=== PATIENT | male | born 2005 | race Caucasian/White ===

== ENCOUNTER 2024-04-06 15:47 | Emergency (ER) | payer SELFPAY ==
--- NOTE | ~2024-04-06 | XR_ITS ---
EXAM: XR ankle RT min 3V, XR foot RT min 3V DATE: 04/06/2024 17:09 HISTORY: sports injury, swelling, pain . COMPARISON: None available. FINDINGS: Normal mineralization. No fracture or dislocation. No lytic or blastic lesion. Mild degene rative change at the first MTP joint. No erosion or periosteal change. Lateral soft tissue swelling. IMPRESSION: No acute osseous finding in the right ankle or foot. Reviewed, dictated and finalized at location K. PEELING MACHINE OPERATOR HELPER IMPRESSION: No acute osseous finding in the right ankle or foot.
[2024-04-06 16:19] VITALS: BP 144/78; PULSE 93; RESP 18; TEMP 36.5; O2SAT 97
--- NOTE | 2024-04-06 17:43 | ED.LOWEXIN ---
HPI - Extremity Injury (Lower) General Chief Complaint: Extremity Injury, Lower Stated Complaint: fell playing basketball, right foot pain Time Seen by Provider: 04/06/24 17:11 History of Present Illness HPI Narrative: Patient is a 19-year-old male who presents ER with right ankle pain. Was playing basketball yesterday and inverted his ankle. Is able to initially walk on it but pain increased significantly as did swelling. He has bruising noted inferior and posterior to the ankle. He is using crutches because he cannot bear weight. No numbness or tingling. Review of Systems Constitutional: Constitutional: Reports no additional constitutional complaints Musculoskeletal: Musculoskeletal: Reports no additional musculoskeletal complaints PMFSH Past Medical History Medical History (Updated 04/06/24 @ 17:47 by Triston Ivan MD) Healthy adult male Surgical History Surgical History (Updated 04/06/24 @ 17:45 by Triston Ivan MD) No pertinent past surgical history Exam Narrative: GENERAL: Well-appearing, well-nourished, and in no acute distress. HEAD: Normocephalic, atraumatic. ENT: Mucous membranes moist. HEART: Regular rate and rhythm. Normal peripheral pulses. EXTREMITIES: Normal range of motion. Swollen right ankle laterally with tenderness over the anterior aspect of the lateral malleolus as well as the posterior aspect. Bruising noted inferior and posterior to the lateral malleolus. Neurovascular intact. SKIN: Warm, dry, no rash. NEURO: Alert and oriented x3. PSYCH: Normal mood and affect. Course Course Emergency Course: Discharge home with Blue wrap. Recommend obtaining a rigid stirrup splint. Rest/eye/depression/elevation. Vital Signs Vital signs: Vital Signs Temperature 97.7 F 04/06/24 16:19 Pulse Rate 93 04/06/24 16:19 Respiratory Rate 18 04/06/24 16:19 Blood Pressure 144/78 H 04/06/24 16:19 Pulse Oximetry 97 04/06/24 16:19 Temperature 97.7 F 04/06/24 16:19 Pulse Rate 93 04/06/24 16:19 Respiratory Rate 18 04/06/24 16:19 Blood Pressure 144/78 H 04/06/24 16:19 Pulse Oximetry 97 04/06/24 16:19 MDM - Extremity Injury (Lower) Imaging Data Radiologist's impression: ITS Impressions Ankle X-Ray 04/06/24 17:20 IMPRESSION: No acute osseous finding in the right ankle or foot. Foot X-Ray 04/06/24 17:20 IMPRESSION: No acute osseous finding in the right ankle or foot. Discharge Plan Discharge Clinical Impression: Ankle sprain Patient Disposition: Home, Self-Care Condition: Stable Instructions: Ankle Sprain (ED), P.R.I.C.E. Treatment (ED) Additional Instructions: Return the ER if you suffered a new injury, have chest pain shortness of breath, you can not keep down food water, you have additional concerns. Patient Language: Sinhala Prescriptions: New naproxen 375 mg tablet 375 mg PO BID Qty: 14 0RF Follow-up/Referrals: PHYSICIAN NOT ON STAFF,NONSTAFF [Primary Care Provider] -
[2024-04-06] MEDS: HYDROcodone/acetaminophen (*CRX) 5-325 MG TABLET 1 TAB PO (17:50)
--- OUTSIDE RECORDS SUMMARY | 2024-04-06 18:09 | XMS_ITS | Clinical Summary ---
Author Organization [facility] Address [address] [place] [address] Care Team Providers Care Retail Coverage Merchandiser Lead Name Role Phone Randee Giron MD Primary Care Provider [phone] Emmie Zamora [facility]GU[facility] CH[facility]ER Unavailable [phone] Source Comments [facility],non-owned Affiliates and Associated Physician Practices is amultiple site organization consisting of ambulatory clinics and hospital sitesin [place], [place], [place] and [place]. This disclosure is being madepursuant to the Care Everywhere program and may not contain all information available regarding this patient. Last updated 17.[facility] Allergies Active Allergy Reactions Criticality Noted Date Comments Hornet Venom Anaphylaxis High 08/07/2022 Medications * Be aware that medications may not be up to date on this document. Alwaysverify current medications with the patient. Medication Sig Dispensed Refills Start Date End Date Status EPINEPHrine (Epipen) 0.3 MG/0.3ML auto-injector pen Inject 0.3 mL into muscle once as needed for Anaphylaxis 0.6 mL 1 08/07/2022 Active Active Problems No known active problems Immunizations Name Administration Dates Next Due DTaP VACCINE IM (6wk-6yrs) 02/11/2009,,2004,04/14 DTaP/HIB 05/21/2005 HEP A PEDS 2 DOSE 10/24/2006,08/15/2005 HEP B VACCINE, PED/ADOL 2004,2004, HIB-PRP-T 4 DOSE 2004,2004, 5 INFLUENZA VACCINE 02/13/2010, 8,12/26/2006,01/07,05/21/2005,02/12/2005,2004 INFLUENZA VACCINE, QUADR. (F LUZONE; FLULAVAL; FLUARIX; AFLURIA QUADRIVALENT; 6MO+), 0.5 ML (IIV4) 01/14/2020,01/13/2019 MENINGOCOCCAL CONJUGATE (MCV4P) 09/11/2021,05/26 MMR 02/11/2009,02/12/2005 PNEUMOCOCCAL PCV7 CONJ, PEDS 05/21/2005, 2004,2004,04/14 POLIO IPV 02/11/2009, 6,2004,04/14 TDAP (7yrs+) 05/17/2014 VARICELLA 02/11/2009,02/12/2005 Family History Medical History Relation Name Comments None Known Brother None Known Father Hypertension Mother Thyroid Disease Mother Relation Name Status Comments Brother Alive Father Alive Mother Alive Social History Tobacco Use Types Packs/Day Years Used Date Smoking Tobacco: Never Smokeless Tobacco: Never Tobacco Cessation:Counseling Given: Not Answered Alcohol Use Standard Drinks/Week Comments Never 0 (1 standard drink = 0.6 oz pur e alcohol) AUDIT-C Answer Date Recorded Q1: How often do you have a drink containing alc ohol? Never 05/26/2020 Average Number of Drinks Not on file 021 Frequency of Binge Drinking Not on file 05/03 PHQ-2 Answer Date Recorded PHQ2 TOTAL SCORE 0 09/10/2022 Sex and Gender Information Value Date Recorded Sex Assigned at Not on file Gender Identity Not on file Sexual Orientation Not on file Last Filed Vital Signs Vital Sign Reading Time Taken Comments Blood Pressure 137/61 03/07/2023 10:47 AM DAY HABILITATION SPECIALIST Pulse 69 03/07/2023 10:47 AM DAY HABILITATION SPECIALIST Temperature 37.1 ??C (98.7 ??F) 03/07/2023 10:[address] Respiratory Rate 18 03/07/2023 10:47 AM DAY HABILITATION SPECIALIST Oxygen Saturation 99% 03/07/2023 10:47 AM DAY HABILITATION SPECIALIST Inhaled Oxygen Concentration - - Weight 77.1 kg (170 lb) 03/07/2023 10:47 AM DAY HABILITATION SPECIALIST Height 182.9 cm (6') 03/07/2023 10:47 AM DAY HABILITATION SPECIALIST Body Mass Index 23.06 03/07/2023 10:47 AM DAY HABILITATION SPECIALIST Plan of Treatment Health Maintenance Due Date Last Done Comments HIV SCREENING 02/09/2019 MENINGOCOCCAL (Group B) VACC INE (1 of 2 - Standard) 2020 HEPATITIS C SCREENING 02/05/2022 COVID-19 VACCINE (3 - 2023-2 5 season) 2023 08/17/2020, 07/27/2020 INFLUENZA VACCINE (#1) 2023 , 01/13/2019, 02/13/2010, Additional history exists DEPRESSION SCREENING 03/04/2024 05/14/2022, 03/08/2022, 03/20/2021 DTAP/TDAP/TD VACCINES (7 - T d or Tdap) 05/17/2024 05/17/2014, 02/11/2009, 05/21/2005, Additional history exists ZOSTER VACCINE (1 of 2) 02/09/2054 HEPATITIS B VACCINE Completed 2004, 2004, 2004 HIB VACCINE Completed 05/21/2005, 08/02, 2004, Additional history exists PNEUMOCOCCAL VACCINE Completed 05/21/2005, 2004, 2004, Additional history exists HPV VACCINE Completed 01/31/2017, 06/15/2016 MENINGOCOCCAL VACCINE Completed 09/11/2021, 021 Care Teams Retail Coverage Merchandiser Lead Relationship Specialty Start Date End Date Randee Giron MD [address] [place] [id number] PCP - General Family Medicine 05/26/20 Emmie Zamora, [facility] [address] [place] [address] PCP - Att[facility] 07/02/22
--- OUTSIDE RECORDS SUMMARY | 2024-04-06 18:09 | XMS_ITS | Clinical Summary ---
Author Organization [facility] Address [address] [place] [address] Phone Care Team Providers Care Senior Controller Name Role Phone Cassie Banda MD Primary Care Provider Allergies No known active allergies Medications amoxicillin (AMOXIL) 500 mg capsule Take 500 mg by mouth 3 times daily. Active Active Problems Problem Noted Date Diagnosed Date Dizzy 03/26/2018 Abnormal EKG 03/26/2018 Family History Medical History Relation Name Comments Healthy Brother 16 yo Healthy Father Hypertension Mother Congenital Heart Defect Neg Hx Inheritable Arrhythmias Neg Hx Sudden Neg Hx Relation Name Status Comments Brother Father Mother Social History Tobacco Use Types Packs/Day Years Used Date Smoking Tobacco: Never Smokeless Tobacco: Never Adolescent Education Answer Date Record ed Getting School Help Needed Not on file 10/07 Sex and Gender Information Value Date Recorded Sex Assigned at Not on file Legal Sex Male 11:14 PM CDT Gender Identity Not on file Sexual Orientation Not on file Last Filed Vital Signs Vital Sign Reading Time Taken Comments Blood Pressure 124/56 03/26/2018 2:02 PM SPECIALTY DEVELOPMENT CONSULTANT Pulse 68 03/26/2018 2:02 PM SPECIALTY DEVELOPMENT CONSULTANT Temperature - - Respiratory Rate 20 03/26/2018 2:02 PM SPECIALTY DEVELOPMENT CONSULTANT Oxygen Saturation - - Inhaled Oxygen Concentration - - Weight 63.2 kg (139 lb 4.8 oz) 03/26/2018 2:02 P M SPECIALTY DEVELOPMENT CONSULTANT Height 175.3 cm (5' 9 ) 03/26/2018 2:02 PM SPECIALTY DEVELOPMENT CONSULTANT Body Mass Index 20.57 03/26/2018 2:02 PM SPECIALTY DEVELOPMENT CONSULTANT Plan of Treatment Health Maintenance Due Date Last Done Comments CHLAMYDIA SCREENING (ANNUAL) 11-24 YEARS 02/09/2015 HPV VACCINES (1 - Male 3-dos e series) 02/09/2019 DTAP/TDAP/TD VACCINES (1 - Tdap) 02/09/2023 HEPATITIS B VACCINES (1 of 3 - 19+ 3-dose series) 02/09/2023 INFLUENZA VACCINE (#1) 2023 PNEUMOCOCCAL VACCINE 0-64 YEARS Aged Out No longer eligible based on patient's age to complete this topic Insurance [facility] BLUE P[employer] Care Teams Senior Controller Relationship Specialty [place] [address] [place] [address] PCP - General Pediatrics 03/25/18
--- OUTSIDE RECORDS SUMMARY | 2024-04-06 18:09 | XMS_ITS | Patient Health Summary ---
Author Organization [facility] Address [address] [place] [address] Care Team Providers Care Delivery Helper Name Role Phone Randee Giron MD Primary Care Provider [phone] Emmie Zamora APRN-VP LEGAL AFFAIRS Unavailable [phone] Note from [facility],non-owned Affiliates and Associated Physician Practices is amultiple site organization consisting of ambulatory clinics and hospital sitesin [place], [place], [place] and [place]. This disclosure is being madepursuant to the Care Everywhere program and may not contain all information available regarding this patient. Last updated 17.[facility] Allergies * Hornet Venom(Anaphylaxis) -High Criticality Medications * Be aware that medications may not be up to date on this document. Alwaysverify current medications with the patient. * EPINEPHrine (Epipen) 0.3 MG/0.3ML auto-injector pen(Started 08/07/2022) Inject 0.3 mL into muscle once as needed for Anaphylaxis 1 refill by 08/07/2023 Active Problems No known active problems Immunizations * DTaP VACCINE IM (6wk-6yrs)(Given 02/11/2009, 2004, 2004, 2004) * DTaP/HIB(Given 05/21/2005) * HEP A PEDS 2 DOSE(Given 10/24/2006, 08/15/2005) * HEP B VACCINE, PED/ADOL(Given 2004, 2004, 2004) * HIB-PRP-T 4 DOSE(Given 2004, 2004, 2004) * INFLUENZA VACCINE(Given 02/13/2010, 01/06/2008, 12/26/2006, 01/07/2006, 05/21/2005, 02/12/2005, 2004) * INFLUENZA VACCINE, QUADR. (FLUZONE; FLULAVAL; FLUARIX; AFLURIA QUADRIVALENT; 6MO+), 0.5 ML (IIV4)(Given 01/14/2020, 01/13/2019) * MENINGOCOCCAL CONJUGATE (MCV4P)(Given 09/11/2021, 05/26/2020) * MMR(Given 02/11/2009, 02/12/2005) * PNEUMOCOCCAL PCV7 CONJ, PEDS(Given 05/21/2005, 2004, 2004, 2004) * POLIO IPV(Given 02/11/2009, 05/21/2005, 2004, 2004) * TDAP (7yrs+)(Given 05/17/2014) * VARICELLA(Given 02/11/2009, 02/12/2005) Social History Tobacco Use Types Packs/Day Years [...] Comments Blood Pressure 137/61 03/07/2023 10:47 AM REGULATORY AND COMPLIANCE TECHNICIAN Pulse 69 03/07/2023 10:47 AM REGULATORY AND COMPLIANCE TECHNICIAN Temperature 37.1 ??C (98.7 ??F) 03/07/2023 10:[address] Respiratory Rate 18 03/07/2023 10:47 AM REGULATORY AND COMPLIANCE TECHNICIAN Oxygen Saturation 99% 03/07/2023 10:47 AM REGULATORY AND COMPLIANCE TECHNICIAN Inhaled Oxygen Concentration - - Weight 77.1 kg (170 lb) 03/07/2023 10:47 AM REGULATORY AND COMPLIANCE TECHNICIAN Height 182.9 cm (6') 03/07/2023 10:47 AM REGULATORY AND COMPLIANCE TECHNICIAN Body Mass Index 23.06 03/07/2023 10:47 AM REGULATORY AND COMPLIANCE TECHNICIAN Procedures * SARS-COV-2 (COVID-19) AG (IP) POCT(Performed 03/07/2023) Performed for Strep pharyngitis * STREP A SCREEN - POCT (IP) URGENT CARE(Performed 03/07/2023) Performed for Strep pharyngitis * ECHO COMPLETE(Performed 08/15/2022) Performed for Bradycardia * HOLTER MONITOR(Performed 06/14/2022) Performed for Lightheadedness * CARDIAC EKG ORDER(Performed 06/04/2022) * TROPONIN I(Performed 05/30/2022) * MAGNESIUM BLOOD(Performed 05/30/2022) * TSH REFLEX FREE T4(Performed 05/30/2022) * TROPONIN I(Performed 05/30/2022) * COMPREHENSIVE METABOLIC PANEL(Performed 05/30/2022) * CBC W AUTO DIFFERENTIAL(Performed 05/30/2022) * XR CHEST 1VW PORTABLE(Performed 05/30/2022) Performed for Lightheadedness * EKG 12-LEAD(Performed 05/30/2022) Performed for Lightheadedness * STREP A SCREEN - POCT (IP) URGENT CARE(Performed 05/21/2022) Performed for Strep pharyngitis * SARS-COV-2 (COVID-19) AG (IP) POCT(Performed 05/21/2022) Performed for Strep pharyngitis * INFLUENZA A+B - POCT (IP) URGENT CARE(Performed 05/21/2022) Performed for Strep pharyngitis * EKG 12-LEAD(Performed 05/18/2022) Performed for Bradycardia * EKG 12-LEAD(Performed 05/14/2022) Performed for Shaky * SARS-COV-2 (COVID-19) AG (IP) POCT(Performed 05/14/2022) Performed for Acute nonintractable headache, unspecified headache type * SARS-COV-2 (COVID-19) AG (IP) POCT(Performed 03/08/2022) Performed for Fatigue, unspecified type * INFLUENZA A+B - POCT (IP) URGENT CARE(Performed 03/08/2022) Performed for Fatigue, unspecified type * CULTURE STREP GROUP A(Performed 12/13/2021) Performed for Acute pharyngitis, unspecified etiology * STREP A SCREEN - POINT OF CARE (AMB)(Performed 12/13/2021) Performed for Acute pharyngitis, unspecified etiology * STREP A SCREEN - POCT (IP) URGENT CARE(Performed 11/27/2021) Performed for Strep pharyngitis * SARS-COV-2 (COVID-19) AG (IP) POCT(Performed 11/27/2021) Performed for Strep pharyngitis * STREP A SCREEN - POINT OF CARE (AMB)(Performed 05/05/2021) Performed for Acute pharyngitis, unspecified etiology * STREP A SCREEN DNA PROBE(Performed 05/05/2021) Performed for Acute pharyngitis, unspecified etiology * STREP A SCREEN - POINT OF CARE (AMB)(Performed 03/21/2021) Performed for Sore throat * CULTURE STREP GROUP A(Performed 03/20/2021) * SARS-COV-2 (COVID-19) IN HOUSE(Performed 01/16/2021) Performed for Strep pharyngitis * CULTURE STREP GROUP A(Performed 01/16/2021) Performed for Strep pharyngitis * STREP A SCREEN - POCT (IP) URGENT CARE(Performed 01/16/2021) Performed for Strep pharyngitis * STREP A SCREEN - POCT (IP) URGENT CARE(Performed 12/28/2020) Performed for Strep throat * SARS-COV-2 (COVID-19) IN HOUSE(Performed 06/26/2020) Performed for Pharyngitis, unspecified etiology * CULTURE STREP GROUP A(Performed 06/26/2020) Performed for Pharyngitis, unspecified etiology * STREP A SCREEN - POCT (IP) URGENT CARE(Performed 06/26/2020) Performed for Pharyngitis, unspecified etiology * SARS-COV-2 (COVID-19) AG (IP) POCT(Performed 06/26/2020) Performed for Pharyngitis, unspecified etiology * STREP A SCREEN - POCT (IP) URGENT CARE(Performed 04/27/2020) Performed for Body aches * SARS-COV-2 (COVID-19) IN HOUSE(Performed 04/27/2020) Performed for Body aches * SARS-COV-2 (COVID-19) IN HOUSE(Performed 03/14/2020) Performed for Strep throat * STREP A SCREEN - POCT (IP) URGENT CARE(Performed 03/14/2020) Performed for Strep throat * STREP A SCREEN - POCT (IP) URGENT CARE(Performed 03/30/2019) Performed for Strep pharyngitis Results * SARS-COV-2 (COVID-19) AG (IP) POCT (03/07/2023 10:56 AM REGULATORY AND COMPLIANCE TECHNICIAN) Only the most recent of6 resultswithin the time period is included. SARS-CoV-2 Ag Negative Negative [facility] Lot # [id number] [facility] Expiration Date [id number] [facility] Instrument Serial Number na [facility] COVID Internal Control Acceptable Acceptable [facility] Microbiology SPECIMEN FROM NASAL FOSSAE / Unknown 03/07/2023 10:56 AM REGULATORY AND COMPLIANCE TECHNICIAN Narrative [facility] - 03/07/2023 11:02 AM REGULATORY AND COMPLIANCE TECHNICIAN SARS-CoV-2 antigen testing is authorized for use with nasal (Veritor, BinaxNOW, or Mirian) or nasopharyngeal (Mirian) swabs collected from individuals who are suspected of COVID-19 infection by their healthcare provider within the first five days of onset of symptoms. ??False-positive SARS-CoV-2 test results are more likely to occur when disease prevalence is low (less than 1%). False-negative SARS-CoV-2 test results are more likely to occur when disease prevalence is high (greater than 10%). ?? This test has been authorized by the Food and Drug administration (FDA)under an Emergency??Use Authorization (EUA). This test is only authorized for the duration of time the declaration that circumstances exist justifying the authorization of emergency use of in vitro diagnostic tests for detection of SARS-CoV-2 virus and/or diagnosis of COVID-19 infection under section 564(b)(1) of the Act, 21 U.S.C 360bbb-3 (b)(1), unless the authorization is terminated or revoked sooner. Fact Sheets for this EUA assay are available upon request. Negative results should be treated as presumptive and confirmation with a molecular assay, if necessary, for patient management, may be performed. Negative results do not rule out COVID-19 and should not be used as the sole basis for treatment or patient management decisions, including infection control decisions. Negative results should be considered in the context of a patient's recent exposures, history and the presence of clinical signs and symptoms consistent with COVID-19. Negative results should be treated as presumptive and confirmation with a molecular assay, if necessary, for patient management, may be performed. Negative results do not rule out COVID-19 and should not be used as the sole basis for treatment or patient management decisions, including infection control decisions. Negative results should be considered in the context of a patient's recent exposures, history and the presence of clinical signs and symptoms consistent with COVID-19. Marley Desai [facility] RE ORDERABLES Performing Organization Address [facility] Co de Phone Number [facility] [address] [place] [address], [facility] [phone] * (ABNORMAL) STREP A SCREEN - POCT (IP) URGENT CARE (03/07/2023 10:51 AM REGULATORY AND COMPLIANCE TECHNICIAN) Only the most recent of9 resultswithin the time period is included. [facility] Strep A Rapid POCT Positive(A ) Negative [facility] QC Verified Yes Yes [facility] Throat ENTIRE THROAT (SURFACE REGION OF NECK) / Unknown 03/07/2023 10:51 AM REGULATORY AND COMPLIANCE TECHNICIAN Marley Desai [facility] RE ORDERABLES Performing Organization Address [facility] Co de Phone Number [facility] [address] [place] [address], [facility] [phone] * ECHO COMPLETE (08/15/2022 11:22 AM CDT) [facility] BSA 1.6267458 m2 SSM CV FUJ I PACS LV biplane EF 52 52 - 72 % SSM CV FUJI PACS LV A2C EF 52 48 - 76 % SSM CV FUJ I PACS LV A4C EF 51 46 - 74 % SSM CV FUJ I PACS LVOT stroke vol 65.00 cm3 SSM CV FUJI PACS LV stroke vol 2D teich 68.909 ml SSM CV FUJI PACS LV stroke vol index A4C MOD 71 ml SSM CV FUJI PACS LVIDd 5.43 4.2 - 5.8 cm SSM CV FUJI PACS LVIDs 4.10 2.5 - 4.0 cm SSM CV FUJI PACS IVSd 2D 0.938 0.6 - 1 cm SSM CV FUJI PACS LVPWd 0.94 cm SSM CV FUJ I PACS Fractional Shortening 2D 24 28 - 44 % SSM CV FUJI PACS LV ESV BP 67 21 - 61 mL SSM CV FUJI PACS LV ESV index BP 34.7 11 - 31 mL/m2 SSM CV FUJI PACS LV ESV A2C 67 15 - 75 mL SSM CV FUJI PACS LV EDV BP 139 mL SSM CV FUJ I PACS LV ESV A4C 66 22 - 78 mL SSM CV FUJI PACS LV EDV index BP 72.0 34 - 74 mL/m2 SSM CV FUJI PACS LV EDV A2C 138 59 - 175 mL SSM CV FUJI PACS LV EDV A4C 138 mL SSM CV FU JI PACS LV ESV 2D 74.223 21 - 61 mL SSM CV FUJI PACS LV EDV 2D 143.132 62 - 150 mL SSM CV FUJI PACS LV EDV A/L A4C 138.037 mL SSM C V FUJI PACS LVOT diam 2.0 cm SSM CV FUJ I PACS LVOT area 3.14 cm2 SSM CV FUJ I PACS LV RWT 0.345 SSM CV FUJ I PACS LV Friedman A2C 8.95 cm SSM CV F UJI PACS LV Friedman A4C 9.08 cm SSM CV F UJI PACS LV Area Friedman A2C 38.3 cm2 SSM CV FUJI PACS LV Area Friedman A4C 38.4 cm2 SSM CV FUJI PACS MV E pk kemar 72.8 cm/s SSM CV F UJI PACS MV avg E/e' ratio 6.04 SS M CV FUJI PACS MV A pk kemar 23.1 cm/s SSM CV F UJI PACS MV E A ratio 3.15 SSM CV FUJI PACS MV E' lateral kemar 12.9 cm/s SS M CV FUJI PACS MV DT 253 ms SSM CV FUJ I PACS MV E' septal kemar 11.3 cm/s SSM CV FUJI PACS MV E/e' septal 6.442 SSM C V FUJI PACS MV E/e' lateral 5.643 SSM CV FUJI PACS LA vol BP 51 mL SSM CV FUJ I PACS TR pk kemar 191.0 cm/s SSM CV FUJ I PACS LVOT pk kemar 0.79 m/s SSM CV F UJI PACS LVOT mn kemar 0.54 m/s SSM CV F UJI PACS LVOT mn grad 1.0 mmHg SSM CV FUJI PACS LA ESV INDEX (BP) 26 ml/m2 SS M CV FUJI PACS LA ESV A2C MOD Index 31 ml/m2 SSM CV FUJI PACS LA ESV A4C MOD Index 21 ml/m2 SSM CV FUJI PACS LA size 3 3.0 - 4.0 cm SSM CV FUJI PACS LA vol BP A-L 55.264 mL SSM CV FUJI PACS AV mn grad 3 mmHg SSM CV FU JI PACS AV pk grad 5 mmHg SSM CV FU JI PACS AV mn kemar 0.77 m/s SSM CV FUJ I PACS AV pk kemar 1.17 m/s SSM CV FUJ I PACS AV VTI 28.4 cm SSM CV FUJ I PACS LVOT pk grad 3 mmHg SSM CV FUJI PACS LVOT VTI 20.7 cm SSM CV FUJ I PACS AV area planimetry 2.29 cm2 SSM CV FUJI PACS AV area index 1.2 cm2/m2 SSM CV FUJI PACS AV area cont VTI 2.3 cm2 SSM CV FUJI PACS AV area pk kemar 2.1 cm2 SSM C V FUJI PACS AV Doppler kemar index pk kemar 0.68 SSM CV FUJI PACS MV PHT 73 ms SSM CV FUJ I PACS MV area PHT 3.01 cm2 SSM CV F UJI PACS sPAP 17.6 mmHg SSM CV FUJ I PACS RVSP 17.6 mmHg SSM CV FUJ I PACS RAP 3.0 mmHg SSM CV FUJ I PACS TR pk grad 15 mmHg SSM CV FU JI PACS dPAP 6.0 mmHg SSM CV FUJ I PACS PV pk kemar 121 cm/s SSM CV FUJ I PACS PV pk grad 5 mmHg SSM CV FU JI PACS Sinus of Valsalva 3.00 cm SS M CV FUJI PACS Ascending aorta 2.80 cm SSM CV FUJI PACS [id number] 7.91 cm SSM CV FUJ I PACS [id number] 7.95 cm SSM CV FUJ I PACS LA AREA (2C) 20.2 SSM CV FUJI PACS LA AREA (4C) 15.9 SSM CV FUJI PACS Dimensionless Index 0.729 SSM CV FUJI PACS LV stroke vol BP 72 mL SSM CV FUJI PACS LVIDs index 2.13 1.3 - 2.1 cm/m2 SSM CV FUJI PACS LV LVIDd index 2.81 2.2 - 3.0 cm/m2 SSM CV FUJI PACS Anatomical Region Laterality Modality Ultrasound Narrative 08/15/2022 3:27 PM CDT ?Left??Ventricle: Left ventricle size is normal. Normal wall thickness. Mildly reduced systolic function with a visually estimated EF of 50 - 55%. Normal wall motion. Normal diastolic function. Normal mean left atrial pressure. ?Mitral??Valve: Mild regurgitation. Left Ventricle Left ventricle size is normal. Normal wall thickness. Mildly reduced systolic function with a visually estimated EF of 50 - 55%. Normal wall motion. Normal diastolic function. Normal mean left atrial pressure. Right Ventricle Right ventricle size is normal. Normal systolic function. Left Atrium Left atrium size is normal. Right Atrium Right atrium size is normal. IVC/SVC IVC diameter is less than or equal to 21 mm and decreases greater than 50% during inspiration; therefore the estimated right atrial pressure is normal (~3 mmHg). Mitral Valve Valve structure is normal. No restricted motion. Mild regurgitation. No stenosis. Tricuspid Valve Valve structure is normal. No restricted motion. Trace regurgitation. The pulmonary artery systolic pressure is normal. No stenosis. Aortic Valve Valve structure is trileaflet. No restricted motion. No regurgitation. No stenosis. Pulmonic Valve Valve structure is normal. No restricted motion. Trace regurgitation. No stenosis. Main pulmonary artery size is normal. Ascending Aorta Normal sized sinus of Valsalva (aortic root) and ascending aorta. Pericardium No pericardial effusion. Study Details Study quality was adequate. A complete 2D, color Doppler, spectral Doppler and M-mode echocardiogram was performed. The apical, parasternal, subcostal and suprasternal views were obtained. Procedure Note Sukhdeep Medina MD - 08/15/2022 ? ? Left??Ventricle: Left ventricle size is normal. Normal wall thickness.Mildly reduced systolic function with a visually estimated EF of 50 - 55%.Normal wall motion. Normal diastolic function. Normal mean left atrialpressure. ? ? Mitral??Valve: Mild regurgitation. Tosha Agustin MD ECHO CUPID * HOLTER MONITOR (06/14/2022) Impressions [facility] - 06/14/2022 Conclusions: 1. Average heart rate 69 bpm with heart rate range 33 to 183 bpm 2. Symptomatic episodes corresponding to sinus rhythm between 58-77 bpm 3. Very rare isolated PVCs 4. Five pauses of up to 2.2 seconds duration 5. No recorded episodes of atrial fibrillation, SVT , heart block, or VT. Riaz Meza PA-C CARDIAC SERVICES ORD ERABLES [facility] * CARDIAC EKG ORDER (06/04/2022 10:27 PM CDT) Narrative 06/04/2022 10:27 PM CDT Ordered by an unspecified provider. Scanned Document CARDIAC SERVICES ORD ERABLES * TROPONIN I (05/30/2022 1:50 PM CDT) Only the most recent of2 resultswithin the time period is included. Troponin I 0.013 <0.038 ng/mL 05/30/2022 2:15 PM CDT [facility] Blood BLOOD SPECIMEN / Unknown Venipuncture / Unknown 05/30/2022 1:50 PM CDT 05/30/2022 1:52 PM CDT Riaz Meza PA-C LAB - CHEMISTRY ORDManny WALTERS Performing Organization Address [facility] Co de Phone Number [facility] [address] [facility] [place] [place], [place] [id number] * TSH REFLEX FREE T4 (05/30/2022 11:01 AM CDT) TSH 1.314 0.350 - 4.940 uIU/mL 05/30/2022 11:49 AM CDT [facility] Blood BLOOD SPECIMEN / Unknown Venipuncture / Unknown 05/30/2022 11:01 AM CDT 05/30/2022 11:06 AM CDT Riaz Meza PA-C LAB - CHEMISTRY [facility] Performing Organization Address [facility] Co de Phone Number [facility] [address] [place] [address] * (ABNORMAL) CBC W AUTO DIFFERENTIAL (05/30/2022 11:01 AM CDT) WBC 8.4 4.5 - 11.0 x10E9/L 05/30/2022 11:09 AM CDT [facility] WBC Corrected 05/30/2022 11:09 AM CDT [facility] RBC 4.73 4.50 - 5.30 x10E12/L 05/30/2022 11:09 AM CDT [facility] Hemoglobin 14.4 13.0 - 16.0 gm/dL 05/30/2022 11:09 AM CDT [facility] Hematocrit 41.9 37.0 - 49.0 % 05/30/2022 11:09 AM CDT [facility] MCV 88.6 78.0 - 98.0 fl 05/30/2022 11:09 AM CDT [facility] MCH 30.4 25.0 - 35.0 pg 05/30/2022 11:09 AM CDT [facility] MCHC 34.4 31.0 - 37.0 gm/dL 05/30/2022 11:09 AM [facility] Platelet Count 433(H) 100 - 400 x10E9/L 05/30/2022 11:09 AM [facility] RDW-CV 11.7 11.5 - 14.0 % 05/30/2022 11:09 AM [facility] MPV 9.0 6.0 - 9.5 fl 05/30/2022 11:09 AM [facility] Neutrophils % 56.2 31.0 - 78.0 % 05/30/2022 11:09 AM [facility] Lymphocytes % 29.3 13.0 - 54.0 % 05/30/2022 11:09 AM [facility] Monocytes % 7.4 4.0 - 13.0 % 05/30/2022 11:09 AM [facility] Eosinophils % 3.6 0.0 - 8.0 % 05/30/2022 11:09 AM [facility] Basophils % 1.2 % 05/30/2022 11:09 AM [facility] Immature Granulocytes 2.3 % 05/30/2022 11:09 AM [facility] Neutrophil Absolute 4.70 1.4 - 8.58 x10E9/L 05/30/2022 11:09 AM [facility] Lymphocytes Absolute 2.45 0.59 - 5.94 x10E9/L 05/30/2022 11:09 AM [facility] Monocytes Absolute 0.62 0.18 - 1.43 x10E9/L 05/30/2022 11:09 AM [facility] Eosinophils Absolute 0.30 0 - 0.88 x10E9/L 05/30/2022 11:09 AM [facility] Basophils Absolute 0.10 0 - 0.22 x10E9/L 05/30/2022 11:09 AM [facility] Immature Granulocytes Absolute 0.19(H) 0 - 0.11 x10E9/L 05/30/2022 11:09 AM [facility] nRBC Auto 0 /100 WBC 05/30/2022 11:09 AM [facility] Blood BLOOD SPECIMEN / Unknown Venipuncture / Unknown 05/30/2022 11:01 AM CDT 05/30/2022 11:06 AM CDT Riaz Meza PA-C LAB - HEMATOLOGY ORD ERABLES [facility] [address] [address] * (ABNORMAL) COMPREHENSIVE METABOLIC PANEL (05/30/2022 11:01 AM CDT) [facility] Glucose 86 70 - 105 mg/dL 05/30/2022 11:30 AM T [facility] Sodium 137 136 - 145 mmol/L 05/30/2022 11:30 AM [facility] Potassium 4.5 3.5 - 5.1 mmol/L 05/30/2022 11:30 AM [facility] Chloride 106 98 - 107 mmol/L 05/30/2022 11:30 AM [facility] CO2 22 20 - 28 mmol/L 05/30/2022 11:30 AM [facility] Calcium 9.9 8.4 - 10.4 mg/dL 05/30/2022 11:30 AM [facility] Anion Gap 9 8 - 18 mmol/L 05/30/2022 11:30 AM [facility] BUN 21(H) 8.9 - 20.6 mg/dL 05/30/2022 11:30 AM [facility] Creatinine 0.91 0.72 - 1.25 mg/dL 05/30/2022 11:30 AM [facility] Alkaline Phosphatase 73 40 - 150 U/L 05/30/2022 11:30 AM [facility] ALT 22 0 - 61 U/L 05/30/2022 11:30 AM [facility] AST 24 5 - 34 U/L 05/30/2022 11:30 AM [facility] Protein Total 8.4(H) 6.4 - 8.3 gm/dL 05/30/2022 11:30 AM [facility] Albumin 4.6 3.4 - 5.0 gm/dL 05/30/2022 11:30 AM [facility] Bilirubin Total 0.4 0.2 - 1.2 mg/dL 05/30/2022 11:30 AM CDT [facility] eGFR by CKD-EPI >90 >=90 mL/min/1.7 3 m2 05/30/2022 11:30 AM CDT [facility] Blood BLOOD SPECIMEN / Unknown Venipuncture / Unknown 05/30/2022 11:01 AM CDT 05/30/2022 11:06 AM CDT Riaz Meza PA-C LAB - CHEMISTRY [facility] [address] [place] [address] * MAGNESIUM BLOOD (05/30/2022 11:01 AM CDT) Magnesium 2.0 1.7 - 2.3 mg/dL 05/30/2022 11:30 AM CDT [facility] Blood BLOOD SPECIMEN / Unknown Venipuncture / Unknown 05/30/2022 11:01 AM CDT 05/30/2022 11:06 AM CDT Riaz Meza PA-C LAB - CHEMISTRY [facility] Performing Organization Address [facility] Co de Phone Number [facility] [address] [place] [address] * XR CHEST 1VW PORTABLE (05/30/2022 10:53 AM CDT) Anatomical Region Laterality Modality Chest Radiographic Glenda ging 05/30/2022 11:1 0 AM CDT Narrative 05/30/2022 11:10 AM CDT Portable AP chest INDICATION: Difficulty breathing FINDINGS: Bilateral lung de león clear. Heart size normal. No pneumothorax or pleural effusion. > Interpreting Provider: Petr Cornejo MD on 05/30/2022 11:10 AM Procedure Note Petr Cornejo MD - 05/30/2022 Portable AP chest INDICATION: Difficulty breathing FINDINGS: Bilateral lung de león clear. Heart size normal. No pneumothorax orpleural effusion. > Interpreting Provider: Petr Cornejo MD on 05/30/2022 11:10 AM Riaz Meza PA-C DIAGNOSTIC IMAGING O RDERABLES * EKG 12-LEAD (05/30/2022 9:50 AM CDT) Only the most recent of3 resultswithin the time period is included. Ventricular Rate 63 BPM [facility] Atrial Rate 63 BPM [facility] P-R Interval 140 ms [facility] QRS Duration ms 94 ms [facility] Q-T Interval ms 390 ms [facility] QTC Calculation (Bezet) 399 ms [facility] Calculated P [place] 77 degrees [facility] Calculated R [place] 85 degrees [facility] Calculated T [place] 54 degrees [facility] Interpretation EKG Normal sinus rhythm Normal ECG No previous ECGs available Confirmed by MD MELCHOR, EVGENY ([id number]) on 05/30/2022 11:07:18 PM [facility] 05/30/2022 9:50 AM CDT 05/30/2022 11:07 PM CDT Storm Blas MD ECG ORDERABLES [facility] M[facility] * INFLUENZA A+B - POCT (IP) URGENT CARE (05/21/2022 4:55 PM CDT) Only the most recent of2 resultswithin the time period is included. Pathologist [facility] Influenza A Antigen Rapid Negative Negative [facility] Influenza B Antigen Rapid Negative Negative [facility] QC Verified Yes Yes [facility] Other SPECIMEN FROM NASAL FOSSAE / Unknown 05/21/2022 4:55 PM CDT Marley Desai APRN-VP LEGAL AFFAIRS LAB - POINT OF CA RE ORDERABLES [facility] [address] [facility] [place] [address], [facility] [phone] * CULTURE STREP GROUP A (12/13/2021 12:13 PM CDT) Only the most recent of4 resultswithin the time period is included. Beta-Strep Culture, Group A Only Negative [facility] ACCOUNT BILL Comment:Reference Range: Neg ative Microbiology ENTIRE THROAT (SURFACE REGION OF NECK) / Unknown 12/13/2021 12:13 PM CDT 12/13/2021 Narrative Resulting Agency Comment Lab Testing performed at: [facility] [address] ??[facility] [phone] Emmie Mancia Sera MANUFACTURING CONTROLLER-VP LEGAL AFFAIRS LAB - MICROB IOLOGY ORDERABLES [facility] ACCOUNT BILL [address] [place] [address] * STREP A SCREEN - POINT OF CARE (AMB) (12/13/2021 12:12 PM CDT) Only the most recent of3 resultswithin the time period is included. Strep A Rapid POCT Negative Negative [facility] Strep A Internal Control Absent [facility] Other NASOPHARYNGEAL SWAB / Unknown 12/13/2021 12:12 PM CDT Emmie Mancia Sera MANUFACTURING CONTROLLER-VP LEGAL AFFAIRS LAB - POINT OF CARE ORDERABLES Performing Organization Address City/[facility]/ZIP Co de Phone Number [facility] [address] [phone] * STREP A SCREEN DNA PROBE (05/05/2021 2:41 PM REGULATORY AND COMPLIANCE TECHNICIAN) Strep A Direct DNA Probe Negative Negative [facility] ACCOUNT BILL Comment: Due to discontinuation of kit production by the telescope maintenance, this test will be made non-orderable at a future date when current supply is depleted. [facility] offers test [id number] Beta-Hemolytic Streptococcus Culture, Group A Only and test [id number] Streptococcus Group A Antigen, IA with Reflex to Culture. Microbiology ENTIRE THROAT (SURFACE REGION OF NECK) / Unknown 05/05/2021 2:41 PM REGULATORY AND COMPLIANCE TECHNICIAN 05/05/2021 Narrative Resulting Agency Comment Lab Testing performed at: [facility] [address] ??[facility] [phone] Emmie Zamora MANUFACTURING CONTROLLER-VP LEGAL AFFAIRS LAB - MICROB IOLOGY ORDERABLES [facility] ACCOUNT [place] [address] [place] [address] * SARS-COV-2 (COVID-19) INTERNAL (01/16/2021 12:04 PM REGULATORY AND COMPLIANCE TECHNICIAN) Only the most recent of4 resultswithin the time period is included. COVID-19 PCR Not detected Not detected 01/17/2021 12:32 PM REGULATORY AND COMPLIANCE TECHNICIAN [facility] Microbiology SPECIMEN FROM NASOPHARYNGEAL STRUCTURE / Unknown Collection / Unknown 01/16/2021 12:04 PM REGULATORY AND COMPLIANCE TECHNICIAN 01/16/2021 12:04 PM REGULATORY AND COMPLIANCE TECHNICIAN Narrative [facility] - 01/17/2021 12:32 PM REGULATORY AND COMPLIANCE TECHNICIAN This nucleic acid amplification assay performance was validated by [facility]. This test has been authorized by the Food and Drug administration (FDA)under an Emergency??Use Authorization (EUA). This test has been validated in accordance with the FDA's guidance document Policy for Diagnostic Testing in Laboratories Certified to perform High Complexity Testing under CLIA prior to Emergency Use Authorization for Coronavirus Disease-2019 during the Public Health Emergency issued on May 02, 2019. FDA independent review of this validation is pending. This test is only authorized for the duration of time the declaration that circumstances exist justifying the authorization of emergency use of in vitro diagnostic tests for detection of SARS-CoV-2 virus and/or diagnosis of COVID-19 infection under section 564(b)(1) of the Act, 21 U.S.C 360bbb-3 (b)(1), unless the authorization is terminated or revoked sooner. Fact Sheets for this EUA assay are available upon request. Alison Gordon MANUFACTURING CONTROLLER-VP LEGAL AFFAIRS LAB - MICROBIOLO GY ORDERABLES [facility] [address] [place] [address], [facility] [phone] Care Teams Delivery Helper Relationship Specialty Start Date End Date Randee Giron MD [address] [facility] [place] [phone] PCP - General Family Medicine 05/26/20 Emmie Zamora APRN-VP LEGAL AFFAIRS [address] [place] [address] PCP - Attributed-[facility] 07/02/22
--- OUTSIDE RECORDS SUMMARY | 2024-04-06 18:09 | XMS_ITS | Referral Summary ---
Author Organization [facility] Address [address] [address] Care Team Providers Care Grain Broker Name Role Phone Randee Giron MD Primary Care Provider [phone] Emmie Zamora FARM SERVICE CONSULTANT-CARRY OUT CLERK AND SHELF STOCKER Unavailable [phone] Source Comments [facility],non-owned Affiliates and Associated Physician Practices is amultiple site organization consisting of ambulatory clinics and hospital sitesin [place], [place], [place] and [place]. This disclosure is being madepursuant to the Care Everywhere program and may not contain all information available regarding this patient. Last updated 17.[facility] Allergies Active Allergy Reactions Criticality Noted Date [...] 02/11/2009, 6,2004,04/14 TDAP (7yrs+) 05/17/2014 VARICELLA 02/11/2009,02/12/2005 Social History Tobacco Use Types Packs/Day Years [...] Comments Blood Pressure 137/61 03/07/2023 10:47 AM GRADE TEACHER Pulse 69 03/07/2023 10:47 AM GRADE TEACHER Temperature 37.1 ??C (98.7 ??F) 03/07/2023 10:[address] Respiratory Rate 18 03/07/2023 10:47 AM GRADE TEACHER Oxygen Saturation 99% 03/07/2023 10:47 AM GRADE TEACHER Inhaled Oxygen Concentration - - Weight 77.1 kg (170 lb) 03/07/2023 10:47 AM GRADE TEACHER Height 182.9 cm (6') 03/07/2023 10:47 AM GRADE TEACHER Body Mass Index 23.06 03/07/2023 10:47 AM GRADE TEACHER Plan of Treatment Not on file Care Teams Grain Broker Relationship Specialty Start Date End Date Randee Giron MD [address] [place] [phone] PCP - General Family Medicine 05/26/20 Emmie Zamora APRN-CARRY OUT CLERK AND SHELF STOCKER [address] [place] [address] PCP - Attributed-[facility] 07/02/22
== END 2024-04-06 18:11 | disposition home or self-care (01) ==
LOC: ANHED 18:06
PROVIDERS: Emergency Provider Emergency Medicine
DX: S93.401A Sprain of unspecified ligament of right ankle, initial encounter (principal); X50.9XXA Other and unspecified overexertion or strenuous movements or postures, initial encounter; Y93.67 Activity, basketball
CPT/HCPCS: 73610; 73630; 99283; A9270